=== PATIENT | male | born 1955 | race Caucasian/White ===

== ENCOUNTER 2017-08-15 09:45 | Emergency (ER) | payer BC, MEDICARE ==
[~2017-08-15 09:45] MED LIST: AEC81 PO; DIAZ5TAB PO; DIGO0.25 PO; GABA-529 PO; LISI-613 PO; METO100T14 PO; PANT40TA25 PO; TRAM50TA4 PO
[2017-08-15] MEDS ORDERED: HYDROCODONE/ACETAMINOPHEN 10/325 MG TAB ONE (10:25)
== END 2017-08-15 10:49 | disposition home or self-care (01) ==
LOC: EDH 09:45
DX: S82.831A Other fracture of upper and lower end of right fibula, initial encounter for closed fracture (principal); Z86.73 Personal history of transient ischemic attack (TIA), and cerebral infarction without residual deficits; I48.91 Unspecified atrial fibrillation; Z95.0 Presence of cardiac pacemaker; Z79.899 Other long term (current) drug therapy; X58.XXXA Exposure to other specified factors, initial encounter; Y93.89 Activity, other specified; Y92.008 Other place in unspecified non-institutional (private) residence as the place of occurrence of the external cause; Y99.8 Other external cause status
CPT/HCPCS: 29515; 73610; 73630

== ENCOUNTER → 2018-05-09 | Outpatient (CLI) | payer OTHER | END | disposition home or self-care (01) | LOC: RAH 07:48 | PROVIDERS: ATTEND Internal Medicine | DX: K76.89 Other specified diseases of liver (principal) | CPT/HCPCS: 76700; 93975 ==

== ENCOUNTER 2018-06-30 09:58 | Observation (INO) | payer OTHER ==
[2018-06-28 10:15] VITALS: BP 131/80
[2018-06-28 10:20] LABS: BASOPHILS % (AUTO) 0.5 % (0.0-5.0); EOSINOPHILS % (AUTO) 1.3 % (0.0-8.0); HEMATOCRIT 37.9 % (42-54); LYMPHOCYTES % (AUTO) 23.3 % (21.0-51.0); MEAN CORPUSCULAR HEMOGLOBIN 30.8 pg (27.0-33.0); MEAN CORPUSCULAR VOLUME 93.3 fL (79-99); MONOCYTES % (AUTO) 10.3 % (3.0-13.0); NEUTROPHILS % (AUTO) 64.6 % (40.0-77.0); PLATELET COUNT (AUTO) 207 K/uL (130-400); RED BLOOD CELL COUNT(AUTO) 4.06 MIL/uL (4.50-6.20); RED CELL DISTRIBUTION WIDTH 13.3 % (11.0-15.5); WHITE BLOOD COUNT (AUTO) 8.4 K/uL (4.8-10.8)
[2018-06-28 10:26] LABS: POTASSIUM 4.8 mmol/L (3.5-5.1)
[2018-06-28 10:43] LABS: INR 0.96 (0.85-1.15); PARTIAL THROMBOPLASTIN TIME 29.6 SEC (26.3-35.5); PROTHROMBIN TIME 10.1 SEC (9.6-11.6)
[2018-06-30] VITALS (15 sets, daily range): BP systolic 89–131; BP diastolic 42–108
[~2018-06-30] VITALS: Ht 180.3 cm; Wt 129.0 kg
[~2018-06-30 09:58] MED LIST changes: +APIX5TAB PO; +AUGMENTIN PO; +CEFAZOLIN SODIUM 1 GM VIAL IVP SCH; -DIAZ5TAB PO; -DIGO0.25 PO; +DIGO250T84 PO; +FERS325 PO; +LACT10SO32 PO; +LEVO50TA11 PO; -METO100T14 PO; +MULT-729 PO; -PANT40TA25 PO; -TRAM50TA4 PO; +VENL100T4 PO; +metoprolol PO
[2018-06-30] MEDS ORDERED: SODIUM CHLORIDE 0.9% 1000ML 1,000 ML IV ONE (11:36)
[2018-06-30] MEDS ORDERED: MIDAZOLAM HCL 1 MG/ML 2ML VIAL ONE ×4 (12:17→13:46)
[2018-06-30] MEDS ORDERED: BUPIVACAINE/PF 0.25% 30ML VIAL IJ ONE (12:17)
[2018-06-30] MEDS ORDERED: MEPERIDINE-PF 25 MG/ML SYG ONE ×4 (12:17→13:46)
[2018-06-30] MEDS ORDERED: LIDOCAINE HCL 1% MDV 50ML VIAL ONE (12:17)
[2018-06-30] MEDS ORDERED: IODIXANOL 320 MG/ML 100 ML VIAL ONE (12:48)
[2018-06-30] MEDS ORDERED: OCTYL 2-CYANOACRYLATE 1 EACH TP ONE (13:37)
[2018-06-30] MEDS ORDERED: ACETAMINOPHEN 325 MG TAB PO PRN ×2 (14:45)
[2018-06-30] MEDS ORDERED: ONDANSETRON HCL 4 MG/2 ML VIAL IV PRN (14:45)
[2018-06-30] MEDS ORDERED: ACETAMINOPHEN-CODEINE 300/30MG TAB PO PRN (14:45)
[2018-06-30] MEDS: CEFAZOLIN SODIUM 1 GM VIAL IVP SCH (19:45)
[2018-06-30] MEDS: ACETAMINOPHEN-CODEINE 300/30MG TAB PO PRN (20:03)
[2018-06-30] MEDS: GABAPENTIN 100 MG CAPSULE PO SCH (20:14)
[2018-06-30] MEDS: LISINOPRIL 20 MG TABLET PO SCH (20:14)
[2018-06-30] MEDS: METOPROLOL TARTRATE 50 MG TAB PO SCH (21:08)
[2018-07-01] MEDS: ACETAMINOPHEN-CODEINE 300/30MG TAB PO PRN ×4 (00:13→11:53)
[2018-07-01 03:00] VITALS: BP 135/70
[2018-07-01] MEDS: CEFAZOLIN SODIUM 1 GM VIAL IVP SCH (04:06)
[2018-07-01] MEDS ORDERED: LEVOTHYROXINE 50 MCG TABLET PO SCH (06:30)
[2018-07-01 07:43] VITALS: BP 139/72
[2018-07-01] MEDS: LISINOPRIL 20 MG TABLET PO SCH (07:59)
[2018-07-01] MEDS: GABAPENTIN 100 MG CAPSULE PO SCH ×2 (08:02→14:00)
[2018-07-01] MEDS: METOPROLOL TARTRATE 50 MG TAB PO SCH ×2 (08:02→14:00)
[2018-07-01] MEDS ORDERED: MULTIVITAMIN TABLET PO SCH (09:00)
[2018-07-01] MEDS ORDERED: FERROUS SULFATE 325 MG TABLET.DR PO SCH (09:00)
[2018-07-01] MEDS ORDERED: VENLAFAXINE HCL 50 MG TABLET PO SCH (09:00)
[2018-07-01] MEDS ORDERED: ASPIRIN 81 MG EC TAB PO SCH (09:00)
[2018-07-01 11:35] VITALS: BP 97/66
[2018-07-01] MEDS ORDERED: DIGOXIN 250 MCG TABLET PO SCH (16:00)
== END 2018-07-01 15:42 | disposition home or self-care (01) ==
LOC: DAH 09:58 → 2DH 09:59
PROVIDERS: ADMIT Internal Medicine Cardiovascular Disease; ATTEND Internal Medicine Cardiovascular Disease
DX: I48.2 Chronic atrial fibrillation (principal); I44.2 Atrioventricular block, complete; I35.0 Nonrheumatic aortic (valve) stenosis; I11.0 Hypertensive heart disease with heart failure; I50.9 Heart failure, unspecified; I85.10 Secondary esophageal varices without bleeding; K74.60 Unspecified cirrhosis of liver; Z86.711 Personal history of pulmonary embolism; Z95.0 Presence of cardiac pacemaker; Z79.899 Other long term (current) drug therapy
CPT/HCPCS: 33225; 33229; 36415; 71046; 80048; 85025; 85610; 85730; 93005; 96374; 96376; A4218 ×2; A4606; C1769 ×3; C1900; C2621; G0378 ×30; J0690 ×2; J2175 ×4; J2250 ×4; J3490 ×2; J7030; Q9967; 99156; 99157

== ENCOUNTER → 2018-10-31 | Outpatient (CLI) | payer OTHER ==
[~2018-10-31] MED LIST changes: -AUGMENTIN PO; -CEFAZOLIN SODIUM 1 GM VIAL IVP SCH
== END | disposition home or self-care (01) ==
LOC: RAH 07:32
PROVIDERS: ATTEND Internal Medicine Gastroenterology
DX: K70.30 Alcoholic cirrhosis of liver without ascites (principal)
CPT/HCPCS: 76700; 93975

== ENCOUNTER → 2018-12-26 | Outpatient (CLI) | payer OTHER | END | disposition home or self-care (01) | LOC: SHCH 10:27 | PROVIDERS: ATTEND Internal Medicine Cardiovascular Disease | DX: I08.0 Rheumatic disorders of both mitral and aortic valves (principal); I11.9 Hypertensive heart disease without heart failure | CPT/HCPCS: 93306 ==

== ENCOUNTER → 2019-04-10 | Outpatient (CLI) | payer OTHER ==
[~2019-04-10] MED LIST changes: +DIGO125T87 PO; +DULO60CA64 PO; +FLUT1AER IH; +FURO20TA4 PO; +GABA-531 PO; +HYDROCORTISONE RC; +METO100T14 PO; +PANT40TA PO; +PRAMOXINE RC; +RIFA550T PO; +SPIR50TA5 PO; +TRAZ-185 PO; +WHEA1POW2 PO
== END | disposition home or self-care (01) ==
LOC: RAH 08:53
PROVIDERS: ATTEND Internal Medicine Gastroenterology
DX: K70.31 Alcoholic cirrhosis of liver with ascites (principal); K76.89 Other specified diseases of liver
CPT/HCPCS: 76700; 93975

== ENCOUNTER → 2019-09-18 | Outpatient (CLI) | payer OTHER ==
[~2019-09-18] MED LIST changes: -AEC81 PO; -APIX5TAB PO; +DIGO125T71 PO; -DIGO125T87 PO; -DIGO250T84 PO; -GABA-529 PO; -metoprolol PO
== END | disposition home or self-care (01) ==
LOC: RAH 09:04
PROVIDERS: ATTEND Internal Medicine Gastroenterology
DX: K76.89 Other specified diseases of liver (principal); K70.30 Alcoholic cirrhosis of liver without ascites
CPT/HCPCS: 76700; 93975

== ENCOUNTER 2019-11-27 06:12 | Day surgery (SDC) | payer OTHER ==
[~2019-11-27] VITALS: Ht 182.9 cm; Wt 129.3 kg
[~2019-11-27 06:12] MED LIST changes: +ACET1TAB12 PO; -HYDROCORTISONE RC; -PRAMOXINE RC; +SODIUM CHLORIDE 0.9% 1000ML 1,000 ML IV ONE
[2019-11-27 06:30] VITALS: BP 134/89
[2019-11-27] MEDS ORDERED: LIDOCAINE HCL 2% 20ML ONE (07:42)
[2019-11-27] MEDS ORDERED: PROPOFOL 10 MG/ML 20ML VIAL IV ONE (07:42)
[2019-11-27 07:54] VITALS: BP 118/66
[2019-11-27 08:00] VITALS: BP 114/69
[2019-11-27 08:04] VITALS: BP 111/67
== END 2019-11-27 08:31 | disposition home or self-care (01) ==
LOC: DAH 06:12
PROVIDERS: ATTEND Internal Medicine Gastroenterology
DX: I85.00 Esophageal varices without bleeding (principal); K22.8 Other specified diseases of esophagus; I10 Essential (primary) hypertension; K70.31 Alcoholic cirrhosis of liver with ascites; K29.50 Unspecified chronic gastritis without bleeding; K57.30 Diverticulosis of large intestine without perforation or abscess without bleeding; Z86.010 Personal history of colon polyps; I48.20 Chronic atrial fibrillation, unspecified; F41.9 Anxiety disorder, unspecified; E03.9 Hypothyroidism, unspecified; Z86.73 Personal history of transient ischemic attack (TIA), and cerebral infarction without residual deficits; Z79.01 Long term (current) use of anticoagulants; Z79.899 Other long term (current) drug therapy; F32.9 Major depressive disorder, single episode, unspecified; Z95.0 Presence of cardiac pacemaker
CPT/HCPCS: 43239; A4215; A4221; A4222; A4223; A4606; A4620; A4657; A4663; J2704; J3490; J7030

== ENCOUNTER → 2020-03-04 | Outpatient (CLI) | payer OTHER ==
[~2020-03-04] MED LIST changes: -SODIUM CHLORIDE 0.9% 1000ML 1,000 ML IV ONE; -VENL100T4 PO
== END | disposition home or self-care (01) ==
LOC: SHCH 10:15
PROVIDERS: ATTEND Internal Medicine Cardiovascular Disease
DX: I49.5 Sick sinus syndrome (principal)
CPT/HCPCS: 93306

== ENCOUNTER → 2020-03-19 | Outpatient (CLI) | payer OTHER | END | disposition home or self-care (01) | LOC: RAH 07:32 | PROVIDERS: ATTEND Internal Medicine Gastroenterology | DX: K76.89 Other specified diseases of liver (principal); K82.4 Cholesterolosis of gallbladder; K70.30 Alcoholic cirrhosis of liver without ascites | CPT/HCPCS: 76700; 93975 ==

== ENCOUNTER → 2020-10-09 | Outpatient (CLI) | payer OTHER ==
[~2020-10-09] MED LIST changes: -LISI-613 PO; +LISI20TA24 PO
== END | disposition home or self-care (01) ==
LOC: RAH 08:25
PROVIDERS: ATTEND Internal Medicine Gastroenterology
DX: K70.30 Alcoholic cirrhosis of liver without ascites (principal); K82.4 Cholesterolosis of gallbladder; K76.89 Other specified diseases of liver
CPT/HCPCS: 76700; 93975

== ENCOUNTER 2020-12-02 07:29 | Day surgery (SDC) | payer OTHER ==
[~2020-12-02] VITALS: Ht 180.3 cm; Wt 136.1 kg
[~2020-12-02 07:29] MED LIST changes: -LEVO50TA11 PO; +LEVO75TA10 PO; +SODIUM CHLORIDE 0.9% 1000ML 1,000 ML IV ONE
[2020-12-02 08:30] VITALS: BP 113/77
[2020-12-02] MEDS ORDERED: APIX5TAB PO (09:11)
[2020-12-02] MEDS ORDERED: PROPOFOL 10 MG/ML 20ML VIAL IV ONE ×2 (09:18)
[2020-12-02 09:37] VITALS: BP 110/71
[2020-12-02 09:47] VITALS: BP 112/75
[2020-12-02 09:57] VITALS: BP 116/79
[2020-12-02 10:05] VITALS: BP 108/74
== END 2020-12-02 10:05 | disposition home or self-care (01) ==
LOC: DAH 07:29 → ENDO 07:29
PROVIDERS: ATTEND Internal Medicine
DX: K70.30 Alcoholic cirrhosis of liver without ascites (principal); I85.00 Esophageal varices without bleeding; K82.4 Cholesterolosis of gallbladder; K57.30 Diverticulosis of large intestine without perforation or abscess without bleeding; Z86.010 Personal history of colon polyps; Z80.0 Family history of malignant neoplasm of digestive organs; K22.8 Other specified diseases of esophagus; I48.91 Unspecified atrial fibrillation; I10 Essential (primary) hypertension; F41.9 Anxiety disorder, unspecified; F32.9 Major depressive disorder, single episode, unspecified; Z86.73 Personal history of transient ischemic attack (TIA), and cerebral infarction without residual deficits; E03.9 Hypothyroidism, unspecified; Z96.641 Presence of right artificial hip joint; Z20.822 Contact with and (suspected) exposure to COVID-19; Z79.01 Long term (current) use of anticoagulants; Z79.899 Other long term (current) drug therapy
CPT/HCPCS: 43235; A4215 ×2; A4221; A4222; A4223; A4606; A4620; A4657; A4663; C9803; J2704; J7030; U0003

== ENCOUNTER → 2021-02-06 | Outpatient (CLI) | payer OTHER ==
[~2021-02-06] MED LIST changes: +APIX5TAB PO; -DULO60CA64 PO; -SODIUM CHLORIDE 0.9% 1000ML 1,000 ML IV ONE
== END | disposition home or self-care (01) ==
LOC: SHCH 09:49
PROVIDERS: ATTEND Internal Medicine Cardiovascular Disease
DX: I08.3 Combined rheumatic disorders of mitral, aortic and tricuspid valves (principal); R55 Syncope and collapse; I42.0 Dilated cardiomyopathy
CPT/HCPCS: 93306; 93356

== ENCOUNTER → 2021-02-09 | Outpatient (CLI) | payer OTHER ==
[~2021-02-09] MED LIST changes: +REGADENOSON 0.4 MG/5 ML PF SYG IVP SCH
== END | disposition home or self-care (01) ==
LOC: SHCH 08:34
PROVIDERS: ATTEND Internal Medicine Cardiovascular Disease
DX: I42.0 Dilated cardiomyopathy (principal); M54.2 Cervicalgia; R06.09 Other forms of dyspnea
CPT/HCPCS: 78452; 93017; 96374; A9500 ×2; J2785

== ENCOUNTER 2021-05-04 07:26 | Day surgery (SDC) | payer OTHER ==
[2021-04-30 11:56] LABS: BASOPHILS % (AUTO) 0.5 % (0.0-5.0); EOSINOPHILS % (AUTO) 1.4 % (0.0-8.0); HEMATOCRIT 38.3 % (42-54); LYMPHOCYTES % (AUTO) 20.8 % (21.0-51.0); MEAN CORPUSCULAR HEMOGLOBIN 31.9 pg (27.0-33.0); MEAN CORPUSCULAR HGB CONC 32.4 g/dL (32.0-36.0); MEAN CORPUSCULAR VOLUME 98.5 fL (79-99); MONOCYTES % (AUTO) 10.1 % (3.0-13.0); NEUTROPHILS % (AUTO) 66.7 % (40.0-77.0); PLATELET COUNT (AUTO) 182 K/uL (130-400); RED BLOOD CELL COUNT(AUTO) 3.89 MIL/uL (4.50-6.20); RED CELL DISTRIBUTION WIDTH 14.1 % (11.0-15.5); WHITE BLOOD COUNT (AUTO) 6.2 K/uL (4.8-10.8)
[2021-04-30 12:10] LABS: CREATININE 1.1 mg/dL (0.5-1.5); INR 1.03 (0.85-1.15); POTASSIUM 4.7 mmol/L (3.5-5.1); PROTHROMBIN TIME 11.2 SEC (9.6-11.6)
[2021-04-30 12:12] LABS: PARTIAL THROMBOPLASTIN TIME 30.8 SEC (26.3-35.5)
[2021-04-30 13:14] LABS: APPEARANCE,URINE Clear (CLEAR); BILIRUBIN,URINE Negative (NEGATIVE); COLOR,URINE Yellow (YELLOW); GLUCOSE, URINE (UA) Negative (NEGATIVE); KETONES,URINE Negative (NEGATIVE); LEUKOCYTE ESTERASE ,URINE Negative (NEGATIVE); NITRATE,URINE Negative (NEGATIVE); OCCULT BLOOD,URINE Negative (NEGATIVE); PROTEIN,URINE Negative (NEGATIVE)
[2021-05-04] VITALS (11 sets, daily range): BP systolic 79–136; BP diastolic 70–85
[~2021-05-04] VITALS: Ht 180.3 cm; Wt 133.9 kg
[~2021-05-04 07:26] MED LIST changes: +0.9%NACL 1000ML 1,000 ML IV ONE; -ACET1TAB12 PO; +DULO60CA64 PO; -FERS325 PO; -FURO20TA4 PO; -LACT10SO32 PO; +LACT10SO62 PO; -MULT-729 PO; -REGADENOSON 0.4 MG/5 ML PF SYG IVP SCH; +SODI1TAB PO; -SPIR50TA5 PO; -TRAZ-185 PO; +TRAZ-187 PO; -WHEA1POW2 PO; +iron PO
[2021-05-04] MEDS ORDERED: NITROGLYCERIN 2 MG VIAL IV ONE (10:21)
[2021-05-04] MEDS ORDERED: LIDOCAINE HCL 400MG/20ML VIAL ONE (10:21)
[2021-05-04] MEDS ORDERED: IOHEXOL 350 MG/ML 100ML INFUS..BTL IV ONE (10:21)
[2021-05-04] MEDS ORDERED: IOHEXOL-350 50ML VIAL IV ONE (10:21)
[2021-05-04] MEDS ORDERED: HEPARIN 10,000 UNIT/10ML (1,000 UNIT/ML) VIAL ONE (10:21)
[2021-05-04] MEDS ORDERED: SODIUM BICARB 50MEQ 50ML VIAL 50 ML ONE (10:21)
[2021-05-04] MEDS ORDERED: NICARDIPINE 25MG INJ IV ONE (10:21)
[2021-05-04] MEDS ORDERED: MEPERIDINE-PF 25 MG/ML SYG ONE ×2 (10:41→10:52)
[2021-05-04] MEDS ORDERED: MIDAZOLAM HCL 1 MG/ML 2ML VIAL ONE ×2 (10:42→10:52)
[2021-05-04] MEDS ORDERED: 0.9%NACL 1000ML 1,000 ML IV SCH (11:30)
== END 2021-05-04 17:20 | disposition home or self-care (01) ==
LOC: DAH 07:26
PROVIDERS: ATTEND Internal Medicine Cardiovascular Disease
DX: I25.10 Atherosclerotic heart disease of native coronary artery without angina pectoris (principal); I48.91 Unspecified atrial fibrillation; I49.5 Sick sinus syndrome; Z79.01 Long term (current) use of anticoagulants; Z79.890 Hormone replacement therapy; Z79.899 Other long term (current) drug therapy; Z98.890 Other specified postprocedural states; Z72.89 Other problems related to lifestyle; Z86.73 Personal history of transient ischemic attack (TIA), and cerebral infarction without residual deficits
CPT/HCPCS: 36415; 71045; 80048; 81003; 85025; 85610; 85730; 93005; 93458; A4215; A4216; A4221; A4222; A4223 ×3; A4606; A4663; C1760; C1894; J1644; J2175 ×2; J2250 ×2; J3490 ×3; J7030; Q9965; Q9967 ×2; 99156; 99157

== ENCOUNTER 2021-06-29 04:24 | Inpatient (IN) | payer OTHER ==
[~2021-06-29] VITALS: Ht 180.3 cm; Wt 63.6 kg
[2021-06-29] VITALS (11 sets, daily range): BP systolic 119–157; BP diastolic 56–89
[~2021-06-29 04:24] MED LIST changes: -0.9%NACL 1000ML 1,000 ML IV ONE
[2021-06-29 05:18] LABS: BASOPHILS % (AUTO) 0.8 % (0.0-5.0); EOSINOPHILS % (AUTO) 1.7 % (0.0-8.0); HEMATOCRIT 23.9 % (42-54); LYMPHOCYTES % (AUTO) 19.6 % (21.0-51.0); MEAN CORPUSCULAR HEMOGLOBIN 31.6 pg (27.0-33.0); MEAN CORPUSCULAR HGB CONC 32.6 g/dL (32.0-36.0); MEAN CORPUSCULAR VOLUME 96.8 fL (79-99); MONOCYTES % (AUTO) 16.6 % (3.0-13.0); PLATELET COUNT (AUTO) 226 K/uL (130-400); RED BLOOD CELL COUNT(AUTO) 2.47 MIL/uL (4.50-6.20); RED CELL DISTRIBUTION WIDTH 13.2 % (11.0-15.5); WHITE BLOOD COUNT (AUTO) 6.4 K/uL (4.8-10.8)
[2021-06-29 05:23] LABS: CREATININE 1.5 mg/dL (0.5-1.5)
[2021-06-29 05:28] LABS: ALBUMIN 2.9 g/dL (3.5-5.0); BILIRUBIN,TOTAL 0.2 mg/dL (0.2-1.0); TOTAL PROTEIN, SERUM 6.6 g/dL (6.0-8.3)
[2021-06-29] MEDS ORDERED: IOHEXOL 350 MG/ML 100ML INFUS..BTL IV ONE (05:47)
[2021-06-29] MEDS ORDERED: 0.9%NACL 1000ML 1,000 ML IV ONE ×2 (06:00→08:30)
[2021-06-29 06:31] LABS: INR 1.02 (0.85-1.15); PROTHROMBIN TIME 11.1 SEC (9.6-11.6)
[2021-06-29 07:47] LABS: BILIRUBIN,URINE NEGATIVE (NEGATIVE); GLUCOSE, URINE (UA) 250 mg/dL (NEGATIVE); KETONES,URINE 15 mg/dL (NEGATIVE); LEUKOCYTE ESTERASE ,URINE MODERATE (NEGATIVE); NITRATE,URINE POSITIVE (NEGATIVE); OCCULT BLOOD,URINE LARGE (NEGATIVE); PH,URINE 6.5 (5.0-8.0); PROTEIN,URINE >=300 mg/dL (NEGATIVE)
[2021-06-29] MEDS ORDERED: FENTANYL CITRATE PF 50 MCG/1 ML 2ML VIAL ONE (07:52)
[2021-06-29 08:02] LABS: APPEARANCE,URINE BLOODY (CLEAR); COLOR,URINE RED (YELLOW)
[2021-06-29 08:12] LABS: HEMATOCRIT 22.1 % (42-54)
[2021-06-29] MEDS ORDERED: 0.9% NACL 500ML IV.SOLN 1,000 ML IV ONE (08:21)
[2021-06-29 08:22] LABS: RBC,URINE TNTC /HPF (0-1)
[2021-06-29 08:23] LABS: BACTERIA,URINE Moderate /HPF (None Seen)
[2021-06-29 08:25] LABS: SQUAMOUS EPITHELIAL CELL,UR None Seen /HPF (0-2)
[2021-06-29] MEDS: PANTOPRAZOLE 40 MG/VIAL IVP SCH (09:55)
[2021-06-29] MEDS ORDERED: HYDROMORPHONE 0.5 MG SYG (0.5MG/0.5ML) ONE (11:58)
[2021-06-29] MEDS ORDERED: HYDROMORPHONE 0.5 MG SYG (0.5MG/0.5ML) IVP SCH (12:00)
[2021-06-29] MEDS ORDERED: TADA5TAB13 PO (14:03)
[2021-06-29 15:03] LABS: HEMATOCRIT 24.3 % (42-54)
[2021-06-29] MEDS ORDERED: TRAMADOL HCL 50 MG TABLET PO PRN (18:00)
[2021-06-29] MEDS ORDERED: FLUTICASONE/VILANTEROL 1 EACH AER.POW.BA IH PRN (19:00)
[2021-06-29 19:45] LABS: HEMATOCRIT 25.3 % (42-54)
[2021-06-29] MEDS: METOPROLOL TARTRATE 50 MG TAB PO SCH (21:35)
[2021-06-29] MEDS: RIFAXIMIN 550 MG TABLET PO SCH (21:35)
[2021-06-29] MEDS: GABAPENTIN 300 MG CAPSULE PO SCH (21:35)
[2021-06-29] MEDS: TRAZODONE HCL 100 MG TABLET PO SCH (21:36)
[2021-06-29] MEDS: LACTULOSE 20 GM/30 ML UDCUP PO SCH (21:36)
[2021-06-29] MEDS: DULOXETINE HCL 30 MG CAP PO SCH (21:36)
[2021-06-29] MEDS: CEFTRIAXONE 1G VIAL IVP SCH (21:45)
[2021-06-30] VITALS (14 sets, daily range): BP systolic 95–130; BP diastolic 56–81
[2021-06-30 05:11] LABS: HEMATOCRIT 26.4 % (42-54); MEAN CORPUSCULAR HEMOGLOBIN 30.1 pg (27.0-33.0); MEAN CORPUSCULAR HGB CONC 31.4 g/dL (32.0-36.0); MEAN CORPUSCULAR VOLUME 95.7 fL (79-99); RED BLOOD CELL COUNT(AUTO) 2.76 MIL/uL (4.50-6.20); RED CELL DISTRIBUTION WIDTH 14.1 % (11.0-15.5); WHITE BLOOD COUNT (AUTO) 6.5 K/uL (4.8-10.8)
[2021-06-30 05:27] LABS: ALBUMIN 2.7 g/dL (3.5-5.0); BILIRUBIN,TOTAL 0.3 mg/dL (0.2-1.0); CREATININE 1.3 mg/dL (0.5-1.5); MAGNESIUM 1.7 mg/dL (1.80-2.40); POTASSIUM 4.3 mmol/L (3.5-5.1); TOTAL PROTEIN, SERUM 6.1 g/dL (6.0-8.3)
[2021-06-30] MEDS: LEVOTHYROXINE 75 MCG TABLET PO SCH (06:39)
[2021-06-30] MEDS ORDERED: KCL 20 MEQ ERTAB PO PRN (08:00)
[2021-06-30] MEDS ORDERED: POTASSIUM CHLORIDE 10% ELIXIR 20 MEQ/15 ML UDCUP PO PRN (08:00)
[2021-06-30] MEDS ORDERED: MAGNESIUM 2GM PREMIX 50ML 50 ML IV PRN (08:00)
[2021-06-30] MEDS ORDERED: POTASSIUM CHLORIDE 20MEQ/100ML 100 ML IV PRN (08:00)
[2021-06-30] MEDS ORDERED: LIDOCAINE HCL-MPF 1% 2ML VIAL IV PRN (08:00)
[2021-06-30] MEDS: GABAPENTIN 300 MG CAPSULE PO SCH ×3 (08:58→20:16)
[2021-06-30] MEDS: DULOXETINE HCL 30 MG CAP PO SCH ×2 (08:58→20:17)
[2021-06-30] MEDS: PANTOPRAZOLE 40 MG/VIAL IVP SCH ×2 (08:58→20:14)
[2021-06-30] MEDS: RIFAXIMIN 550 MG TABLET PO SCH ×2 (08:58→20:17)
[2021-06-30] MEDS: LACTULOSE 20 GM/30 ML UDCUP PO SCH ×3 (08:59→20:14)
[2021-06-30] MEDS: METOPROLOL TARTRATE 50 MG TAB PO SCH ×2 (08:59→20:14)
[2021-06-30] MEDS ORDERED: LEVO500T90 PO (12:09)
[2021-06-30] MEDS: DIGOXIN 125 MCG TABLET PO SCH (17:43)
[2021-06-30] MEDS ORDERED: OCTREOTIDE ACETATE 1,250 MCG in 0.9% NACL 250ML 250 ML IV SCH (19:00)
[2021-06-30] MEDS: CEFTRIAXONE 1G VIAL IVP SCH (20:14)
[2021-06-30] MEDS: TRAZODONE HCL 100 MG TABLET PO SCH (20:17)
[2021-07-01] VITALS (23 sets, daily range): BP systolic 105–144; BP diastolic 54–86
[2021-07-01] MEDS: LEVOTHYROXINE 75 MCG TABLET PO SCH (05:35)
[2021-07-01 06:29] LABS: HEMATOCRIT 24.4 % (42-54); MEAN CORPUSCULAR HEMOGLOBIN 30.5 pg (27.0-33.0); MEAN CORPUSCULAR HGB CONC 32.8 g/dL (32.0-36.0); MEAN CORPUSCULAR VOLUME 93.1 fL (79-99); NUCLEATED RED BLOOD CELLS 0.3 % (0.0-0.19); RED BLOOD CELL COUNT(AUTO) 2.62 MIL/uL (4.50-6.20); WHITE BLOOD COUNT (AUTO) 7.7 K/uL (4.8-10.8)
[2021-07-01 06:41] LABS: INR 1.01 (0.85-1.15)
[2021-07-01 06:43] LABS: PARTIAL THROMBOPLASTIN TIME 27.9 SEC (26.3-35.5)
[2021-07-01 06:47] LABS: ALBUMIN 2.7 g/dL (3.5-5.0); BILIRUBIN,TOTAL 0.4 mg/dL (0.2-1.0); CREATININE 1.4 mg/dL (0.5-1.5); POTASSIUM 4.4 mmol/L (3.5-5.1); TOTAL PROTEIN, SERUM 6.3 g/dL (6.0-8.3)
[2021-07-01] MEDS ORDERED: PROPOFOL 10 MG/ML 20ML VIAL IV ONE (07:34)
[2021-07-01] MEDS ORDERED: LIDOCAINE HCL 1% 20 ML VIAL ONE (07:34)
[2021-07-01] MEDS: PANTOPRAZOLE 40 MG/VIAL IVP SCH ×2 (09:21→20:38)
[2021-07-01] MEDS: RIFAXIMIN 550 MG TABLET PO SCH ×2 (09:22→20:39)
[2021-07-01] MEDS: DULOXETINE HCL 30 MG CAP PO SCH ×2 (09:22→20:39)
[2021-07-01] MEDS: GABAPENTIN 300 MG CAPSULE PO SCH ×3 (09:23→20:39)
[2021-07-01] MEDS: METOPROLOL TARTRATE 50 MG TAB PO SCH ×2 (09:24→20:39)
[2021-07-01] MEDS: LACTULOSE 20 GM/30 ML UDCUP PO SCH ×3 (09:26→20:38)
[2021-07-01] MEDS ORDERED: PEG 3350/NA SULF,BICARB,CL/KCL 4000 ML SOLN PO ONE (14:55)
[2021-07-01] MEDS: DIGOXIN 125 MCG TABLET PO SCH (16:18)
[2021-07-01] MEDS: CEFTRIAXONE 1G VIAL IVP SCH (20:38)
[2021-07-01] MEDS: TRAZODONE HCL 100 MG TABLET PO SCH (20:39)
[2021-07-02] VITALS (18 sets, daily range): BP systolic 99–156; BP diastolic 33–102
[2021-07-02] MEDS: LEVOTHYROXINE 75 MCG TABLET PO SCH (05:56)
[2021-07-02] MEDS: METOPROLOL TARTRATE 50 MG TAB PO SCH ×2 (08:54→19:35)
[2021-07-02] MEDS: GABAPENTIN 300 MG CAPSULE PO SCH ×3 (08:54→19:36)
[2021-07-02] MEDS: DULOXETINE HCL 30 MG CAP PO SCH ×2 (08:54→19:35)
[2021-07-02] MEDS: LACTULOSE 20 GM/30 ML UDCUP PO SCH ×3 (08:54→19:35)
[2021-07-02] MEDS: RIFAXIMIN 550 MG TABLET PO SCH ×2 (08:54→19:35)
[2021-07-02] MEDS: PANTOPRAZOLE 40 MG/VIAL IVP SCH ×2 (09:13→19:35)
[2021-07-02] MEDS ORDERED: MIDAZOLAM HCL 1 MG/ML 2ML VIAL ONE ×2 (12:36)
[2021-07-02] MEDS ORDERED: FENTANYL CITRATE PF 50 MCG/1 ML 2ML VIAL ONE (12:36)
[2021-07-02] MEDS: DIGOXIN 125 MCG TABLET PO SCH (16:24)
[2021-07-02] MEDS ORDERED: HYDR25SU38 RC (18:42)
[2021-07-02] MEDS: CEFTRIAXONE 1G VIAL IVP SCH (19:35)
[2021-07-02] MEDS: TRAZODONE HCL 100 MG TABLET PO SCH (19:35)
[2021-07-03] VITALS: BP 106/69
[2021-07-03 04:00] VITALS: BP 108/78
[2021-07-03 05:08] LABS: HEMATOCRIT 23.8 % (42-54); MEAN CORPUSCULAR HEMOGLOBIN 29.9 pg (27.0-33.0); MEAN CORPUSCULAR HGB CONC 31.9 g/dL (32.0-36.0); MEAN CORPUSCULAR VOLUME 93.7 fL (79-99); RED BLOOD CELL COUNT(AUTO) 2.54 MIL/uL (4.50-6.20); RED CELL DISTRIBUTION WIDTH 13.4 % (11.0-15.5); WHITE BLOOD COUNT (AUTO) 6.4 K/uL (4.8-10.8)
[2021-07-03 05:23] LABS: CREATININE 1.1 mg/dL (0.5-1.5); POTASSIUM 4.4 mmol/L (3.5-5.1)
[2021-07-03] MEDS: LEVOTHYROXINE 75 MCG TABLET PO SCH (05:48)
[2021-07-03 08:00] VITALS: BP 123/80
[2021-07-03] MEDS: DULOXETINE HCL 30 MG CAP PO SCH (09:46)
[2021-07-03] MEDS: RIFAXIMIN 550 MG TABLET PO SCH (09:47)
[2021-07-03] MEDS: METOPROLOL TARTRATE 50 MG TAB PO SCH (09:47)
[2021-07-03] MEDS: GABAPENTIN 300 MG CAPSULE PO SCH (09:47)
[2021-07-03] MEDS: PANTOPRAZOLE 40 MG/VIAL IVP SCH (09:48)
[2021-07-03] MEDS: LACTULOSE 20 GM/30 ML UDCUP PO SCH (09:48)
[2021-07-03 12:00] VITALS: BP 114/74
== END 2021-07-03 16:20 | disposition home or self-care (01) | DRG 729 ==
LOC: EDH 04:24 → INTOOBSV 07:55 → OBSVTOIN 07:55 → EDHIP 07:55 → 2BH 14:18 → 4DH 07-01 17:52
PROVIDERS: ADMIT Internal Medicine; ATTEND Internal Medicine
PROC: 30233N1 Transfusion of Nonautologous Red Blood Cells into Peripheral Vein, Percutaneous Approach (ICD-10-PCS; 2021-06-29)
PROC: 0DB68ZX Excision of Stomach, Via Natural or Artificial Opening Endoscopic, Diagnostic (ICD-10-PCS; principal; 2021-07-01)
PROC: 0DJD8ZZ Inspection of Lower Intestinal Tract, Via Natural or Artificial Opening Endoscopic (ICD-10-PCS; 2021-07-02)
DX: N48.89 Other specified disorders of penis (principal); D62 Acute posthemorrhagic anemia; Z68.1 Body mass index [BMI] 19.9 or less, adult; I48.91 Unspecified atrial fibrillation; N52.9 Male erectile dysfunction, unspecified; R09.89 Other specified symptoms and signs involving the circulatory and respiratory systems; J44.9 Chronic obstructive pulmonary disease, unspecified; K70.30 Alcoholic cirrhosis of liver without ascites; I10 Essential (primary) hypertension; E66.01 Morbid (severe) obesity due to excess calories; E03.9 Hypothyroidism, unspecified; I25.10 Atherosclerotic heart disease of native coronary artery without angina pectoris; K57.90 Diverticulosis of intestine, part unspecified, without perforation or abscess without bleeding; K25.9 Gastric ulcer, unspecified as acute or chronic, without hemorrhage or perforation; K31.89 Other diseases of stomach and duodenum; K57.30 Diverticulosis of large intestine without perforation or abscess without bleeding; K64.9 Unspecified hemorrhoids; N36.8 Other specified disorders of urethra; Z96.641 Presence of right artificial hip joint; Z79.01 Long term (current) use of anticoagulants; Z79.51 Long term (current) use of inhaled steroids; Z79.899 Other long term (current) drug therapy; Z87.891 Personal history of nicotine dependence; Z95.810 Presence of automatic (implantable) cardiac defibrillator
CPT/HCPCS: 36415; 36430; 43239; 45378; 71045; 74177; 80048; 80053; 81001; 82140; 83735; 85014; 85018; 85025; 85027; 85384; 85610; 85730; 86850; 86900; 86901; 86923; 87088; 88305; 88342; 99152; 99291; A4606; C9113; G0378; J0696; J1170; J2250; J2354; J2704; J3010; J3475; J7030; J7040; J7050; P9016; Q9967

== ENCOUNTER 2021-07-09 15:09 | Observation (INO) | payer OTHER ==
[~2021-07-09] VITALS: Ht 180.3 cm; Wt 138.3 kg
[~2021-07-09 15:09] MED LIST changes: -APIX5TAB PO; +HYDR25SU38 RC; +LEVO500T90 PO
[2021-07-09 15:43] LABS: APPEARANCE,URINE Clear (CLEAR); BILIRUBIN,URINE Negative (NEGATIVE); COLOR,URINE Yellow (YELLOW); GLUCOSE, URINE (UA) Negative (NEGATIVE); KETONES,URINE Negative (NEGATIVE); LEUKOCYTE ESTERASE ,URINE Negative (NEGATIVE); NITRATE,URINE Negative (NEGATIVE); OCCULT BLOOD,URINE Negative (NEGATIVE); PROTEIN,URINE Negative (NEGATIVE); UROBILINOGEN,URINE 0.2 mg/dL (0.2-1.0)
[2021-07-09 15:51] LABS: BASOPHILS % (AUTO) 0.4 % (0.0-5.0); EOSINOPHILS % (AUTO) 1.1 % (0.0-8.0); HEMATOCRIT 23.9 % (42-54); LYMPHOCYTES % (AUTO) 11.4 % (21.0-51.0); MEAN CORPUSCULAR HEMOGLOBIN 31.3 pg (27.0-33.0); MEAN CORPUSCULAR HGB CONC 31.8 g/dL (32.0-36.0); MEAN CORPUSCULAR VOLUME 98.4 fL (79-99); MONOCYTES % (AUTO) 12.3 % (3.0-13.0); NEUTROPHILS % (AUTO) 74.2 % (40.0-77.0); NUCLEATED RED BLOOD CELLS 0.2 % (0.0-0.19); PLATELET COUNT (AUTO) 260 K/uL (130-400); RED BLOOD CELL COUNT(AUTO) 2.43 MIL/uL (4.50-6.20); RED CELL DISTRIBUTION WIDTH 15.2 % (11.0-15.5); WHITE BLOOD COUNT (AUTO) 8.4 K/uL (4.8-10.8)
[2021-07-09 16:05] LABS: INR 1.05 (0.85-1.15); PROTHROMBIN TIME 11.4 SEC (9.6-11.6)
[2021-07-09 16:06] LABS: PARTIAL THROMBOPLASTIN TIME 27.3 SEC (26.3-35.5)
[2021-07-09 16:13] LABS: CREATININE 1.2 mg/dL (0.5-1.5); POTASSIUM 4.2 mmol/L (3.5-5.1)
[2021-07-09 16:18] LABS: BILIRUBIN,TOTAL 0.6 mg/dL (0.2-1.0)
[2021-07-09] MEDS ORDERED: KCL 20 MEQ ERTAB PO PRN (18:00)
[2021-07-09] MEDS ORDERED: LIDOCAINE HCL-MPF 1% 2ML VIAL IV PRN (18:00)
[2021-07-09] MEDS ORDERED: ONDANSETRON 4MG INJ IV PRN (18:00)
[2021-07-09] MEDS ORDERED: POTASSIUM CHLORIDE 20MEQ/100ML 100 ML IV PRN (18:00)
[2021-07-09] MEDS ORDERED: ACETAMINOPHEN 325 MG TAB PO PRN (18:00)
[2021-07-09] MEDS ORDERED: POTASSIUM CHLORIDE 10% ELIXIR 20 MEQ/15 ML UDCUP PO PRN (18:00)
[2021-07-09] MEDS ORDERED: HYDRALAZINE 20MG/ML VIAL IV PRN (18:00)
[2021-07-09] MEDS ORDERED: LACTULOSE 20 GM/30 ML UDCUP PO PRN (18:00)
[2021-07-09 18:06] LABS: BASOPHILS % (AUTO) 0.5 % (0.0-5.0); EOSINOPHILS % (AUTO) 1.4 % (0.0-8.0); HEMATOCRIT 22.1 % (42-54); MEAN CORPUSCULAR HEMOGLOBIN 30.6 pg (27.0-33.0); MEAN CORPUSCULAR HGB CONC 30.8 g/dL (32.0-36.0); MEAN CORPUSCULAR VOLUME 99.5 fL (79-99); MONOCYTES % (AUTO) 14.3 % (3.0-13.0); NEUTROPHILS % (AUTO) 69.2 % (40.0-77.0); PLATELET COUNT (AUTO) 216 K/uL (130-400); RED BLOOD CELL COUNT(AUTO) 2.22 MIL/uL (4.50-6.20); RED CELL DISTRIBUTION WIDTH 15.5 % (11.0-15.5); WHITE BLOOD COUNT (AUTO) 6.3 K/uL (4.8-10.8)
[2021-07-09 18:23] LABS: RETICULOCYTE % (AUTO) 5.91 % (0.42-2.23)
[2021-07-09 18:27] LABS: INR 1.07 (0.85-1.15); PROTHROMBIN TIME 11.6 SEC (9.6-11.6)
[2021-07-09 18:28] LABS: PARTIAL THROMBOPLASTIN TIME 28.7 SEC (26.3-35.5)
[2021-07-09 18:29] LABS: % IRON SATURATION 6.1 % (30-44)
[2021-07-09 18:48] LABS: THYROID STIMULATING HORMONE 4.06 uIU/mL (0.36-3.74)
[2021-07-09] MEDS ORDERED: INSULIN HUMULIN R 100 UNIT/ML 3ML SQ SCH (21:00)
[2021-07-09] MEDS ORDERED: TADA5TAB13 PO (22:05)
[2021-07-10 04:27] LABS: BASOPHILS % (AUTO) 0.5 % (0.0-5.0); EOSINOPHILS % (AUTO) 1.6 % (0.0-8.0); HEMATOCRIT 24.9 % (42-54); LYMPHOCYTES % (AUTO) 18.3 % (21.0-51.0); MEAN CORPUSCULAR HEMOGLOBIN 30.5 pg (27.0-33.0); MEAN CORPUSCULAR HGB CONC 32.1 g/dL (32.0-36.0); MONOCYTES % (AUTO) 14.7 % (3.0-13.0); NEUTROPHILS % (AUTO) 64.2 % (40.0-77.0); PLATELET COUNT (AUTO) 243 K/uL (130-400); RED BLOOD CELL COUNT(AUTO) 2.62 MIL/uL (4.50-6.20); RED CELL DISTRIBUTION WIDTH 15.3 % (11.0-15.5); WHITE BLOOD COUNT (AUTO) 5.6 K/uL (4.8-10.8)
[2021-07-10 04:42] LABS: ALBUMIN 2.8 g/dL (3.5-5.0); BILIRUBIN,TOTAL 0.7 mg/dL (0.2-1.0); CREATININE 1.2 mg/dL (0.5-1.5); POTASSIUM 4.1 mmol/L (3.5-5.1); TOTAL PROTEIN, SERUM 6.5 g/dL (6.0-8.3)
[2021-07-10 08:08] VITALS: BP 115/67
[2021-07-10 11:37] VITALS: BP 98/54
[2021-07-10] MEDS ORDERED: FLUTICASONE/VILANTEROL 1 EACH AER.POW.BA IH PRN (15:00)
[2021-07-10] MEDS ORDERED: IPRATROPIUM 0.5 MG/2.5 ML INH IH PRN (15:00)
[2021-07-10 15:27] VITALS: BP 156/66
[2021-07-10] MEDS: PREDNISONE 20 MG TABLET PO SCH (17:10)
[2021-07-10 18:00] LABS: BASOPHILS % (AUTO) 0.4 % (0.0-5.0); LYMPHOCYTES % (AUTO) 16.3 % (21.0-51.0); MEAN CORPUSCULAR HEMOGLOBIN 30.8 pg (27.0-33.0); MEAN CORPUSCULAR VOLUME 96.2 fL (79-99); MONOCYTES % (AUTO) 12.4 % (3.0-13.0); NEUTROPHILS % (AUTO) 69.3 % (40.0-77.0); PLATELET COUNT (AUTO) 252 K/uL (130-400); RED CELL DISTRIBUTION WIDTH 15.5 % (11.0-15.5); WHITE BLOOD COUNT (AUTO) 4.8 K/uL (4.8-10.8)
[2021-07-10] MEDS: IPRATROPIUM 0.5 MG/2.5 ML INH IH SCH ×2 (18:35→23:49)
[2021-07-10 19:45] VITALS: BP 104/67
[2021-07-10] MEDS ORDERED: SODIUM CHLORIDE 3% FOR INHALATION 4 ML/AMP VIAL.NEB IH SCH ×2 (20:40→23:00)
[2021-07-10] MEDS ORDERED: TRAZODONE HCL 100 MG TABLET PO SCH (21:00)
[2021-07-10] MEDS ORDERED: SODIUM CHLORIDE 3% FOR INHALATION 4 ML/AMP VIAL.NEB IH ONE (21:00)
[2021-07-10] MEDS ORDERED: METOPROLOL TARTRATE 50 MG TAB PO SCH (21:00)
[2021-07-10] MEDS: DULOXETINE HCL 30 MG CAP PO SCH (21:06)
[2021-07-10] MEDS: RIFAXIMIN 550 MG TABLET PO SCH (21:07)
[2021-07-10] MEDS: LISINOPRIL 20 MG TABLET PO SCH (21:07)
[2021-07-10] MEDS: PANTOPRAZOLE 40 MG TAB DR PO SCH (21:07)
[2021-07-10] MEDS: FERROUS SULFATE 325 MG TABLET.DR PO SCH (21:08)
[2021-07-10] MEDS: GABAPENTIN 300 MG CAPSULE PO SCH (21:08)
[2021-07-11] VITALS: BP 123/70
[2021-07-11 04:00] VITALS: BP 118/69
[2021-07-11 04:14] LABS: ABG HCO3 24.5 mmol/L (21.0-28.0); ABG OXYGEN SATURATION 97.3 % (95.0-99.0); ABG PCO2 40 mmHg (35-48)
[2021-07-11] MEDS: IPRATROPIUM 0.5 MG/2.5 ML INH IH SCH ×2 (06:19→11:15)
[2021-07-11 07:25] VITALS: BP 131/69
[2021-07-11] MEDS: GABAPENTIN 300 MG CAPSULE PO SCH (08:28)
[2021-07-11] MEDS: FERROUS SULFATE 325 MG TABLET.DR PO SCH (08:28)
[2021-07-11] MEDS: RIFAXIMIN 550 MG TABLET PO SCH (08:28)
[2021-07-11] MEDS: DULOXETINE HCL 30 MG CAP PO SCH (08:28)
[2021-07-11] MEDS: PANTOPRAZOLE 40 MG TAB DR PO SCH (08:28)
[2021-07-11] MEDS: PREDNISONE 20 MG TABLET PO SCH (08:28)
[2021-07-11] MEDS: LISINOPRIL 20 MG TABLET PO SCH (08:29)
[2021-07-11] MEDS ORDERED: LEVOFLOXACIN 750 MG/D5W 150 ML 150 ML IV SCH (09:00)
[2021-07-11] MEDS ORDERED: DIGOXIN 125 MCG TABLET PO SCH (09:00)
[2021-07-11] MEDS ORDERED: METOPROLOL TARTRATE 50 MG TAB PO SCH (09:00)
[2021-07-11] MEDS ORDERED: TADALAFIL 5 MG PO SCH (09:00)
[2021-07-11] MEDS ORDERED: LEVOTHYROXINE 75 MCG TABLET PO SCH (09:00)
[2021-07-11] MEDS ORDERED: PANTOPRAZOLE 40 MG TAB DR PO SCH (09:00)
[2021-07-11 11:15] VITALS: BP 136/68
[2021-07-11] MEDS ORDERED: PRED20TA3 PO (13:03)
[2021-07-12] MEDS ORDERED: LEVOTHYROXINE 75 MCG TABLET PO SCH (06:30)
== END 2021-07-11 14:10 | disposition home or self-care (01) ==
LOC: EDH 15:09 → EDHIP 17:39 → 3BH 07-10 07:52
PROVIDERS: ADMIT Internal Medicine; ATTEND Internal Medicine
DX: D62 Acute posthemorrhagic anemia (principal); J44.1 Chronic obstructive pulmonary disease with (acute) exacerbation; I48.91 Unspecified atrial fibrillation; I10 Essential (primary) hypertension; K70.30 Alcoholic cirrhosis of liver without ascites; E03.9 Hypothyroidism, unspecified; K64.9 Unspecified hemorrhoids; E66.01 Morbid (severe) obesity due to excess calories; Z79.01 Long term (current) use of anticoagulants; Z79.51 Long term (current) use of inhaled steroids; Z79.890 Hormone replacement therapy; Z79.899 Other long term (current) drug therapy; Z95.810 Presence of automatic (implantable) cardiac defibrillator; Z98.890 Other specified postprocedural states; Z68.41 Body mass index [BMI] 40.0-44.9, adult
CPT/HCPCS: 36415 ×2; 36430; 36600; 71045; 80053 ×2; 81003; 82270; 82607; 82746; 82803; 82948 ×2; 83540; 83550; 83880; 84443; 84484 ×4; 85025 ×4; 85045; 85610 ×2; 85730 ×2; 86850; 86900; 86901; 86923; 87071; 87205; 93005 ×2; 94640 ×6; 94664; 96365; 97161; 99285; G0378 ×38; J1956; P9016

== ENCOUNTER → 2021-10-20 | Outpatient (CLI) | payer OTHER ==
[~2021-10-20] MED LIST changes: +IOHEXOL 350 MG/ML 100ML INFUS..BTL IV ONE; +PRED20TA3 PO; +TADA5TAB13 PO
== END | disposition home or self-care (01) ==
LOC: RAH 08:04
PROVIDERS: ATTEND Internal Medicine Gastroenterology
DX: K57.30 Diverticulosis of large intestine without perforation or abscess without bleeding (principal); M47.815 Spondylosis without myelopathy or radiculopathy, thoracolumbar region; K70.30 Alcoholic cirrhosis of liver without ascites; R77.2 Abnormality of alphafetoprotein
CPT/HCPCS: 74170; Q9967

== ENCOUNTER → 2022-02-25 | Outpatient (CLI) | payer OTHER ==
[~2022-02-25] MED LIST changes: +APIX5TAB PO; -IOHEXOL 350 MG/ML 100ML INFUS..BTL IV ONE; +LACT10SO9 PO; +LEVO-70 PO; -LEVO500T90 PO; +TRAZ-185 PO
== END | disposition home or self-care (01) ==
LOC: RAH 08:56
PROVIDERS: ATTEND Internal Medicine Gastroenterology
DX: K70.30 Alcoholic cirrhosis of liver without ascites (principal); K82.4 Cholesterolosis of gallbladder
CPT/HCPCS: 76700; 93975

== ENCOUNTER 2022-03-02 07:29 | Day surgery (SDC) | payer OTHER ==
[2022-02-25 10:34] LABS: BASOPHILS % (AUTO) 0.3 % (0.0-5.0); EOSINOPHILS % (AUTO) 1.5 % (0.0-8.0); HEMATOCRIT 34.8 % (42-54); LYMPHOCYTES % (AUTO) 21.7 % (21.0-51.0); MEAN CORPUSCULAR HEMOGLOBIN 28.5 pg (27.0-33.0); MEAN CORPUSCULAR HGB CONC 32.8 g/dL (32.0-36.0); MONOCYTES % (AUTO) 10.8 % (3.0-13.0); NEUTROPHILS % (AUTO) 65.4 % (40.0-77.0); PLATELET COUNT (AUTO) 187 K/uL (130-400); RED CELL DISTRIBUTION WIDTH 13.7 % (11.0-15.5); WHITE BLOOD COUNT (AUTO) 5.9 K/uL (4.8-10.8)
[2022-02-25 10:49] LABS: CREATININE 1.3 mg/dL (0.5-1.5); POTASSIUM 4.4 mmol/L (3.5-5.1)
[2022-02-25 10:50] LABS: INR 0.99 (0.85-1.15); PROTHROMBIN TIME 10.8 SEC (9.6-11.6)
[2022-02-25 10:51] LABS: PARTIAL THROMBOPLASTIN TIME 30.4 SEC (26.3-35.5)
[2022-03-01 09:49] VITALS: BP 144/92
[2022-03-02] VITALS (15 sets, daily range): BP systolic 100–129; BP diastolic 59–81
[~2022-03-02] VITALS: Ht 182.9 cm; Wt 134.1 kg
[~2022-03-02 07:29] MED LIST changes: -HYDR25SU38 RC; -LACT10SO62 PO; -LEVO-70 PO; -PRED20TA3 PO; -SODI1TAB PO; -TRAZ-187 PO; -iron PO
[2022-03-02] MEDS ORDERED: 0.9%NACL 1000ML 1,000 ML IV SCH (08:00)
[2022-03-02] MEDS ORDERED: FLUMAZENIL 0.1MG/1ML 5ML VIAL IV ONE (08:22)
[2022-03-02] MEDS ORDERED: MIDAZOLAM HCL 1 MG/ML 2ML VIAL ONE (08:23)
[2022-03-02] MEDS ORDERED: NALOXONE HCL 0.4 MG/1 ML ML ONE (08:23)
[2022-03-02] MEDS ORDERED: FENTANYL CITRATE PF 50 MCG/1 ML 2ML VIAL ONE (08:23)
[2022-03-02] MEDS ORDERED: LIDOCAINE HCL 2% VISCOUS 15 ML UDCUP ONE (08:43)
== END 2022-03-02 11:05 | disposition home or self-care (01) ==
LOC: DAH 07:29 → EDSTATUS 08:00 → DAH 11:05
PROVIDERS: ATTEND Student in an Organized Health Care Education/Training Program
DX: I48.21 Permanent atrial fibrillation (principal); I08.1 Rheumatic disorders of both mitral and tricuspid valves; I45.10 Unspecified right bundle-branch block; Z79.01 Long term (current) use of anticoagulants; Z79.899 Other long term (current) drug therapy; Z79.890 Hormone replacement therapy; Z98.890 Other specified postprocedural states
CPT/HCPCS: 80048; 85025; 85610; 85730; 36415; 93005; 93325; 93312; A4223 ×3; J3010; J7030 ×2; J2250; A4215 ×2; A7002; A4222; A4221; A4663; A4216; A4606; 96374; 99152; J2310; J3490

== ENCOUNTER → 2022-11-09 | Outpatient (CLI) | payer OTHER ==
[~2022-11-09] MED LIST changes: +REGADENOSON 0.4 MG/5 ML PF SYG IVP ONE
== END | disposition home or self-care (01) ==
LOC: SHCH 07:53
PROVIDERS: ATTEND Internal Medicine Cardiovascular Disease
DX: I25.10 Atherosclerotic heart disease of native coronary artery without angina pectoris (principal); I51.7 Cardiomegaly; Z95.0 Presence of cardiac pacemaker; Z79.899 Other long term (current) drug therapy
CPT/HCPCS: 78452; 96374; 93017; J2785; A9500 ×2

== ENCOUNTER 2023-03-07 08:20 | Day surgery (SDC) | payer OTHER ==
[2023-03-03 13:16] LABS: BASOPHILS % (AUTO) 0.4 % (0.0-5.0); EOSINOPHILS % (AUTO) 1.2 % (0.0-8.0); HEMATOCRIT 31.6 % (42-54); MEAN CORPUSCULAR HEMOGLOBIN 27.1 pg (27.0-33.0); MEAN CORPUSCULAR HGB CONC 31.3 g/dL (32.0-36.0); MEAN CORPUSCULAR VOLUME 86.6 fL (79-99); MONOCYTES % (AUTO) 12.9 % (3.0-13.0); NEUTROPHILS % (AUTO) 68.9 % (40.0-77.0); PLATELET COUNT (AUTO) 246 K/uL (130-400); RED BLOOD CELL COUNT(AUTO) 3.65 MIL/uL (4.50-6.20); RED CELL DISTRIBUTION WIDTH 17.2 % (11.0-15.5); WHITE BLOOD COUNT (AUTO) 10.4 K/uL (4.8-10.8)
[2023-03-03 13:17] LABS: BASOPHILS # (AUTO) 0.04 K/uL (0.00-0.20); EOSINOPHILS # (AUTO) 0.12 K/uL (0.00-0.70); IMMATURE GRANULOCYTE ABSOLUTE 0.06 K/uL (0-1); LYMPHOCYTES # (AUTO) 1.7 K/uL (1.0-4.8); MONOCYTES # (AUTO) 1.3 K/uL (0.1-1.0); NEUTROPHILS # (AUTO) 7.1 K/uL (1.8-7.7)
[2023-03-03 13:26] LABS: CREATININE 1.6 mg/dL (0.5-1.5); POTASSIUM 4.4 mmol/L (3.5-5.1)
[2023-03-03 13:28] LABS: INR 0.93 (0.85-1.15); PROTHROMBIN TIME 10.7 SEC (9.6-11.6)
[2023-03-03 13:29] LABS: PARTIAL THROMBOPLASTIN TIME 27.4 SEC (26.3-35.5)
[2023-03-03 13:47] LABS: B-TYPE NATRIURETIC PEPTIDE 197 pg/mL (0-100)
[2023-03-03 14:04] VITALS: BP 153/72; PULSE 81; RESP 21
[~2023-03-07] VITALS: Ht 182.9 cm; Wt 140.4 kg
[2023-03-07] VITALS (9 sets, daily range): BP systolic 97–136; BP diastolic 57–82; PULSE 70–78; RESP 13–19
[~2023-03-07 08:20] MED LIST changes: -APIX5TAB PO; +ASPI-1197 PO; +CLOP-31 PO; -DIGO125T71 PO; +DIGO250T73 PO; +DULO30CA52 PO; -DULO60CA64 PO; -FLUT1AER IH; +NITR0.4T50 SL; -REGADENOSON 0.4 MG/5 ML PF SYG IVP ONE; -TRAZ-185 PO; +TRAZ-187 PO
[2023-03-07] MEDS ORDERED: 0.9%NACL 1000ML 1,000 ML IV ONE (09:28)
[2023-03-07] MEDS ORDERED: SODIUM BICARB 50MEQ 50ML VIAL 50 ML ONE (11:26)
[2023-03-07] MEDS ORDERED: LIDOCAINE HCL 400MG/20ML VIAL ONE (11:26)
[2023-03-07] MEDS ORDERED: NITROGLYCERIN 50MG VIAL ONE (11:27)
[2023-03-07] MEDS ORDERED: NICARDIPINE 25MG INJ IV ONE (11:27)
[2023-03-07] MEDS ORDERED: MIDAZOLAM HCL 1 MG/ML 2ML VIAL ONE ×2 (11:27→12:09)
[2023-03-07] MEDS ORDERED: HEPARIN 10,000 UNIT/10ML (1,000 UNIT/ML) VIAL ONE (11:27)
[2023-03-07] MEDS ORDERED: MEPERIDINE-PF 25 MG/ML SYG ONE ×2 (11:27→12:09)
== END 2023-03-07 16:44 | disposition home or self-care (01) ==
LOC: DAH 08:20
PROVIDERS: ATTEND Internal Medicine Cardiovascular Disease
DX: I25.119 Atherosclerotic heart disease of native coronary artery with unspecified angina pectoris (principal); I42.9 Cardiomyopathy, unspecified; N18.9 Chronic kidney disease, unspecified; I48.21 Permanent atrial fibrillation; I49.5 Sick sinus syndrome; I50.42 Chronic combined systolic (congestive) and diastolic (congestive) heart failure; Z79.01 Long term (current) use of anticoagulants; Z86.73 Personal history of transient ischemic attack (TIA), and cerebral infarction without residual deficits; Z98.890 Other specified postprocedural states; Z72.89 Other problems related to lifestyle; Z79.899 Other long term (current) drug therapy
CPT/HCPCS: 80048; 83880; 85025; 85610; 85730; 36415; 71045; 93005; 93458; C1769; A4649; C1894; J3490 ×4; J7030; J1644 ×2; J2250 ×2; J2175 ×2; A4215; A4222; A4221; A4663; A4216; A4606; A4223 ×3; 99156; 99157

== ENCOUNTER → 2023-04-22 | Outpatient (CLI) | payer OTHER ==
[2023-04-22 22:29] VITALS: PULSE 78; RESP 16
[2023-04-22 23:00] VITALS: PULSE 74; RESP 20
[2023-04-22 23:30] VITALS: PULSE 68; RESP 22
[2023-04-23] VITALS (12 sets, daily range): PULSE 62–76; RESP 16–22
== END | disposition home or self-care (01) ==
LOC: SLP 20:40
PROVIDERS: ATTEND Internal Medicine Cardiovascular Disease
DX: G47.33 Obstructive sleep apnea (adult) (pediatric) (principal); I10 Essential (primary) hypertension
CPT/HCPCS: 95811

== ENCOUNTER → 2023-05-17 | Outpatient (CLI) | payer OTHER ==
[2023-05-17 16:19] LABS: CREATININE 1.5 mg/dL (0.5-1.5); POTASSIUM 4.5 mmol/L (3.5-5.1)
== END | disposition home or self-care (01) ==
LOC: LAB 13:43
PROVIDERS: ATTEND Internal Medicine Cardiovascular Disease
DX: I10 Essential (primary) hypertension (principal)
CPT/HCPCS: 36415; 80048

== ENCOUNTER → 2023-05-25 | Outpatient (CLI) | payer OTHER ==
[~2023-05-25] MED LIST changes: +IOHEXOL 350 MG/ML 100ML INFUS..BTL IV ONE
== END | disposition home or self-care (01) ==
LOC: RAH 08:47
PROVIDERS: ATTEND Internal Medicine Cardiovascular Disease
DX: I25.10 Atherosclerotic heart disease of native coronary artery without angina pectoris (principal); I10 Essential (primary) hypertension; E78.5 Hyperlipidemia, unspecified; M47.815 Spondylosis without myelopathy or radiculopathy, thoracolumbar region; K74.60 Unspecified cirrhosis of liver; I73.9 Peripheral vascular disease, unspecified; R06.00 Dyspnea, unspecified; Z95.0 Presence of cardiac pacemaker
CPT/HCPCS: 71270; Q9967

== ENCOUNTER 2023-06-29 05:56 | Day surgery (SDC) | payer OTHER ==
[~2023-06-29] VITALS: Ht 182.9 cm; Wt 136.1 kg
[2023-06-29] VITALS (13 sets, daily range): BP systolic 107–131; BP diastolic 45–80; PULSE 70–78; RESP 10–17
[~2023-06-29 05:56] MED LIST changes: -CLOP-31 PO; +CLOP75TA32 PO; -DULO30CA52 PO; +FLUOXETINE; +FLUT1BLS IH; -IOHEXOL 350 MG/ML 100ML INFUS..BTL IV ONE; +SEMA2PEN SQ; -TADA5TAB13 PO; +TADA5TAB5 PO
[2023-06-29] MEDS ORDERED: 0.9%NACL 1000ML 1,000 ML IV ONE (06:14)
[2023-06-29] MEDS ORDERED: PROPOFOL 10 MG/ML 20ML VIAL IV ONE ×2 (09:04)
== END 2023-06-29 11:00 | disposition home or self-care (01) ==
LOC: ENDO 05:56 → DAH 05:56 → ENDO 11:00
PROVIDERS: ATTEND Internal Medicine Gastroenterology
DX: D50.9 Iron deficiency anemia, unspecified (principal); K63.5 Polyp of colon; K64.2 Third degree hemorrhoids; K57.30 Diverticulosis of large intestine without perforation or abscess without bleeding; K31.7 Polyp of stomach and duodenum; K31.89 Other diseases of stomach and duodenum; K29.50 Unspecified chronic gastritis without bleeding; K70.30 Alcoholic cirrhosis of liver without ascites; I85.10 Secondary esophageal varices without bleeding; I10 Essential (primary) hypertension; F41.9 Anxiety disorder, unspecified; F32.A Depression, unspecified; E03.9 Hypothyroidism, unspecified; K59.04 Chronic idiopathic constipation; K82.4 Cholesterolosis of gallbladder; Z86.010 Personal history of colon polyps; Z80.0 Family history of malignant neoplasm of digestive organs; Z82.3 Family history of stroke; Z82.49 Family history of ischemic heart disease and other diseases of the circulatory system; Z82.5 Family history of asthma and other chronic lower respiratory diseases; Z80.8 Family history of malignant neoplasm of other organs or systems; Z87.891 Personal history of nicotine dependence; Z72.89 Other problems related to lifestyle; Z79.82 Long term (current) use of aspirin; Z79.899 Other long term (current) drug therapy; Z86.73 Personal history of transient ischemic attack (TIA), and cerebral infarction without residual deficits; Z79.890 Hormone replacement therapy; Z95.0 Presence of cardiac pacemaker; Z98.890 Other specified postprocedural states
CPT/HCPCS: 43239; 45380; J7030 ×3; J2704 ×2; A4620 ×2; A4649; A4215 ×2; A4223 ×2; A7002 ×2; A4222 ×2; A4221 ×2; A4606 ×2; 43255; J3490

== ENCOUNTER 2024-03-07 10:52 | Emergency (ER) | payer OTHER ==
[~2024-03-07] VITALS: Ht 180.3 cm; Wt 135.2 kg
[2024-03-07] MEDS: acetaMINOPHEN WITH coDEINE 1 TAB TAB PO ONE (11:55)
[2024-03-07] MEDS ORDERED: ACET-2079 PO (12:29)
[2024-03-07 13:32] VITALS: BP 122/69; PULSE 76; RESP 18; O2SAT 96
== END 2024-03-07 13:38 | disposition home or self-care (01) ==
LOC: EDH 10:52
DX: S93.401A Sprain of unspecified ligament of right ankle, initial encounter (principal); I10 Essential (primary) hypertension; I48.91 Unspecified atrial fibrillation; W01.0XXA Fall on same level from slipping, tripping and stumbling without subsequent striking against object, initial encounter; Y93.89 Activity, other specified; Y92.89 Other specified places as the place of occurrence of the external cause; Y99.8 Other external cause status
CPT/HCPCS: 73610; 73630

== ENCOUNTER → 2024-07-16 | Outpatient (CLI) | payer OTHER ==
[~2024-07-16] MED LIST changes: +ACET-2079 PO
--- NOTE | 2024-07-16 13:50 | HMCIMG ---
CT UPPER EXT W/O CONTRAST REASON: RT SHOUDLER PAIN COMPARISON: None TECHNIQUE: Axial images are obtained from above the shoulder through the mid humerus. Sagittal and coronal reconstruction images were then performed. FINDINGS: There are no visible fractures. This includes normal appearance of the proximal humerus. The glenoid appears unremarkable. AC joint appears normal. There is elevated position of the humeral head in relation to the glenoid. This often a reflection chronic rotator cuff disease. Clinical correlation is recommended in this regard. Soft tissues appear otherwise unremarkable. IMPRESSION: 1. No fracture identified. 2. Elevated position of the humeral head in relation to the glenoid, as well as an osteophyte along the inferior humeral head articular surface, this can reflect to osteoarthritis and/or chronic rotator cuff disease.
== END | disposition home or self-care (01) ==
LOC: RAH 12:41
PROVIDERS: ATTEND Family Medicine
DX: M25.711 Osteophyte, right shoulder (principal); M25.511 Pain in right shoulder
CPT/HCPCS: 73200

== ENCOUNTER → 2024-10-31 | Outpatient (CLI) | payer OTHER ==
[~2024-10-31] MED LIST changes: -ACET-2079 PO; +AMOX1TAB16 PO; +BACL10TA PO; -FLUOXETINE; +FOLI0.4T6 PO; +FURO40TA5 PO; +POTA-202 PO; -SEMA2PEN SQ; -TADA5TAB5 PO; +THIA100T91 PO; -TRAZ-187 PO
[2024-10-31 12:48] LABS: ALBUMIN 3.4 g/dL (3.5-5.0); BILIRUBIN,TOTAL 1.2 mg/dL (0.2-1.0); CREATININE 2.2 mg/dL (0.5-1.3); POTASSIUM 3.9 mmol/L (3.5-5.1); TOTAL PROTEIN, SERUM 7.8 g/dL (6.0-8.3)
== END | disposition home or self-care (01) ==
LOC: LAB 10:09
PROVIDERS: ATTEND Nurse Practitioner Acute Care
DX: I11.0 Hypertensive heart disease with heart failure (principal); I50.9 Heart failure, unspecified
CPT/HCPCS: 36415; 80053; 83735

== ENCOUNTER 2024-11-28 06:00 | Day surgery (SDC) | payer OTHER ==
[~2024-11-28] VITALS: Ht 182.9 cm; Wt 129.3 kg
[2024-11-28] VITALS (10 sets, daily range): BP systolic 104–136; BP diastolic 68–85; PULSE 69–79; RESP 15–18; TEMP 97.2–97.8
[~2024-11-28 06:00] MED LIST changes: -AMOX1TAB16 PO; -BACL10TA PO; -GABA-531 PO; -LISI20TA24 PO; -POTA-202 PO
[2024-11-28] MEDS: 0.9%NACL 1000ML 1,000 ML IV ONE (07:12)
[2024-11-28] MEDS ORDERED: proPOFol 10 MG/ML 20ML VIAL IV ONE (08:34)
--- NOTE | 2024-11-28 09:55 | NUR ---
BOTH PT AND SPOUSE GIVEN VERBAL AND WRITTEN DISCHARGE INSTRUCTIONS IV REMOVED SITE ASYMPTOMATIC. WILL BE DRIVING PT PT SENT VIA WHEELCHAIR
== END 2024-11-28 10:05 | disposition home or self-care (01) ==
LOC: DAH 06:00 → ENDO 06:00
PROVIDERS: ATTEND Internal Medicine Gastroenterology
DX: D64.9 Anemia, unspecified (principal); D12.3 Benign neoplasm of transverse colon; K31.89 Other diseases of stomach and duodenum; K70.30 Alcoholic cirrhosis of liver without ascites; K57.30 Diverticulosis of large intestine without perforation or abscess without bleeding; I10 Essential (primary) hypertension; I85.10 Secondary esophageal varices without bleeding; R77.2 Abnormality of alphafetoprotein; K64.2 Third degree hemorrhoids; I48.91 Unspecified atrial fibrillation; E66.01 Morbid (severe) obesity due to excess calories; F41.9 Anxiety disorder, unspecified; F32.A Depression, unspecified; K76.6 Portal hypertension; K59.04 Chronic idiopathic constipation; Z86.0100 Personal history of colon polyps, unspecified; Z80.0 Family history of malignant neoplasm of digestive organs; Z95.0 Presence of cardiac pacemaker; Z86.73 Personal history of transient ischemic attack (TIA), and cerebral infarction without residual deficits; E03.9 Hypothyroidism, unspecified; Z96.641 Presence of right artificial hip joint; Z68.41 Body mass index [BMI] 40.0-44.9, adult; Z79.82 Long term (current) use of aspirin; Z79.899 Other long term (current) drug therapy
CPT/HCPCS: 45380; 43239; J7030; J2704; A4620; J3490